=== PATIENT | female | born 1955 | race Caucasian/White ===

== ENCOUNTER 2019-10-01 09:04 | Outpatient (CLI) | payer OTHER | END 2019-10-01 23:59 | disposition home or self-care (01) | LOC: CFH 09:04 | PROVIDERS: ATTEND Family Medicine | DX: S39.011A Strain of muscle, fascia and tendon of abdomen, initial encounter (principal); K43.2 Incisional hernia without obstruction or gangrene; K76.0 Fatty (change of) liver, not elsewhere classified; Z85.43 Personal history of malignant neoplasm of ovary; Z90.49 Acquired absence of other specified parts of digestive tract; Y92.89 Other specified places as the place of occurrence of the external cause; Y93.89 Activity, other specified; Y99.8 Other external cause status | CPT/HCPCS: 74176; 76705 ==